=== PATIENT | female | born 1945 | race Caucasian/White ===

== ENCOUNTER 2018-10-04 10:10 | Inpatient (IN) | payer OTHER ==
[~2018-10-04] VITALS: Ht 157.5 cm; Wt 48.0 kg
[~2018-10-04 10:10] MED LIST: ALBU90OI INH; CEPH500 PO; HYDACE5 PO; HYDGUAL120 PO; PRED20 PO; SULTRIDS PO
[2018-10-04 10:56] LABS: BASOPHILS PERCENT AUTO 0 % (0-2); EOSINOPHILS PERCENT AUTO 0 % (0-6); Hematocrit 33.3 % (33.0-51.0); Hemoglobin 9.9 g/dL (11.5-16.0); IMMATURE GRAN ABSOLUTE AUTO 0.04 K/mm3 (0.00-0.10); IMMATURE GRAN PERCENT AUTO 0 % (0-1); LYMPHOCYTES PERCENT AUTO 2 % (21-46); MONOCYTES ABSOLUTE AUTO 0.86 K/mm3 (0.16-1.47); MONOCYTES PERCENT AUTO 9 % (4-13); Mean Corpuscular HGB 25.9 pg (26.0-34.0); Mean Corpuscular HGB Conc 29.7 g/dL (31.5-36.5); Mean Corpuscular Volume 87 fL (80-100); Mean Platelet Volume 10.5 fL (9.1-12.4); NEUTROPHILS PERCENT AUTO 88 % (41-73); Platelet Count 185 K/mm3 (150-400); RDW Coefficient Variation 15.2 % (11.7-14.2); RDW Standard Deviation 48.7 fL (35.1-46.3); Red Blood Cell Count 3.82 M/mm3 (3.80-5.20)
[2018-10-04 11:27] LABS: Alanine Aminotransfer (ALT/SGP 34 U/L (12-78); Albumin, Blood 3.1 g/dL (3.4-5.0); Albumin/Globulin Ratio 0.8 (0.8-1.8); Alk Phos 105 U/L (50-136); Anion Gap 7 mmol/L (6-16); Aspartate Aminotrans (AST/SGOT 43 U/L (12-37); Bilirubin, Total 0.6 mg/dL (0.1-1.0); Blood Urea Nitrogen 47 mg/dL (8-24); Bun/Creatinine Ratio 49.3 (12.0-20.0); CO2, Blood 30 mmol/L (21-32); CPK Creatine Kinase 824 U/L (26-193); Calcium, Blood 8.2 mg/dL (8.5-10.1); Chloride, Blood 103 mmol/L (98-108); Creatinine, Blood 0.95 mg/dL (0.40-1.00); Glomerular Filtration Rate >60 (60-); Glucose, Blood 152 mg/dL (70-99); Potassium, Blood 4.6 mmol/L (3.5-5.5); Sodium, Blood 140 mmol/L (136-145); Total Protein, Blood 7.1 g/dL (6.4-8.2)
[2018-10-04 11:43] LABS: Creatine Kinase MB 20.6 ng/mL (0.0-3.6); Creatine Kinase MB Index 2.5 (0.0-4.0)
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
--- NOTE | 2018-10-04 15:22 | NUR ---
Review of patient with ER nurse. Suggest pharmacy consult on lovenox due to risk of bleeding and review of additional fluids. ER nursing revieing additional lab value needs for plan of care.
[2018-10-05 05:17] LABS: Anion Gap 5 mmol/L (6-16); Blood Urea Nitrogen 44 mg/dL (8-24); Bun/Creatinine Ratio 46.8 (12.0-20.0); CO2, Blood 29 mmol/L (21-32); Calcium, Blood 7.9 mg/dL (8.5-10.1); Chloride, Blood 107 mmol/L (98-108); Creatinine, Blood 0.94 mg/dL (0.40-1.00); Glomerular Filtration Rate >60 (60-); Glucose, Blood 97 mg/dL (70-99); Potassium, Blood 4.8 mmol/L (3.5-5.5); Sodium, Blood 141 mmol/L (136-145)
--- NOTE | 2018-10-05 06:43 | NUR ---
SHIFT SUMMARY PT NEW ED ADMIT THIS EVENING. VERY DECONDITIONED. PER REPORT PT LIVES WITH SON HOWEVER SON LEFT BEFORE PT WAS BROUGHT TO HER ROOM. PT ALERT TO SELF AND PLACE. KNOWS THAT SHE IS HERE BECAUSE SHE FELL. PT IS FAIRLY CONFUSED THOUGH, AND A VERY POOR HISTORIAN. PT HAS CURVED BACK AND REPORTS HAVING HAD THIS SINCE SHE WAS A CHILD. ABRASIONS THROUGHOUT BODY. LARGE WHAT APPEARS TO BE LUJAN ON SHOULDERS, BACK, FOREARMS AND FACE. FRONT PORTION OF HAIR ALSO SINGED WOUNDS THROUGHOUT A GOOD PORTION OF HER BODY. BRUISING ALSO SCATTERED THROUGHOUT WITH A VERY LARGE BRUISE COVERING HER ENTIRE R HIP/THIGH. PICTURES IN THE CHART OF ALL. PT WAS VERY DIRTY, LOOKED IF SHE HADN'T SHOWERED IN A VERY LONG TIME. FULL BED BATH GIVEN TAKING OVER AN HOUR AN HAIR WASHED TWICE. PT REMAINS SOMEWHAT DIRTY BUT MUCH IMPROVED. LARGER OPEN WOUNDS COVERED WITH MEPILEX. PT WENT THE ENTIRE NIGHT WITHOUT VOIDING. BLADDER SCAN READ [address] DIAZ AND GOT ONE TIME ORDER FOR STRAIGHT CATH. WHILE GRABBING SUPPLIES PT SET OFF BED ALARM. PT ASSISTED TO BSC AND VOIDED 500 ML. PT HAS ONLY A COUPLE OF TEETH IN HER MOUTH, THIS NURSE HAS NOT SEEN HER EAT. SHE MAY REQUIRE [facility] SOFT DIET. HOWEVER PT DID SWALLOW WATER THROUGH A STRAW WITH NO SWALLOWING ISSUES. VITAL SIGNS STABLE. PT ON 2 L 02 NC. RESTING IN BED AT THIS TIME. WILL CONTINUE TO MONITOR AND REPORT TO DAY RN.
--- NOTE | 2018-10-05 17:30 | NUR ---
Mrs. Chan appears quite frail. She says she is irritated that she has become so weak. She has two adult sons who live with her. "My boys take good care of me." She is very proud of her sons. She admits to feeling worried that something will happen to her b/c her sons are unemployed, live with her, and the 3 of them depend on her social security check to survive. She has lived in the [place] area her entire life. She appears unkempt and disheveled. Numerous bruises and skin lacerations present. She has very few teeth and she admits eating has become a problem. She responded well to conversation and assurance of care. She appeared to enjoy telling me about her childhood and active life. She is non-mormon. We had an easy rapport. No family present at time of visit. I provided theraputic listening and gentle camp head counselor to good effect. I will remain available.
--- NOTE | 2018-10-05 18:09 | NUR ---
SHIFT SUMMARY PT HAS A BROKEN LEFT HIP. ADMITTED FOR FAILURE TO THRIVE. SHE IS A&O X2, ALERT ONLY TO SELF AND FAMILY CONTINUALLY, PERIODICALLY AGITATED/FORGETFUL/CONFUSED. PT IS A POOR HISTORIAN. SHE DID TRY TO EXIT THE BED ONCE THIS SHIFT. I HAVE NOTIFIED CHARGE THAT SHE IS A GOOD CANDIDATE FOR THE [facility] BRIGGS SHOULD A ROOM OPEN UP THERE. SHE IS COVERED IN BRUISES IN VARIOUS STAGES OF HEALING, LUJAN, AND HAS A HX OF FREQUENT FALLS. SHE IS UNABLE TO CARE FOR HERSELF AT HOME. SHE RECEIVES HELP FROM TWO ADULT SONS BUT THEY ADMIT THAT SHE IS BEYOND THEIR ABILITIES AND SHE OFTEN REFUSES TO COMPLY WITH THEM. PALLIATIVE CARE AND TECHNICAL SPEC ARE INVOLVED. DIETARY HAS CHANGED HER DIET TO MECHANICAL SOFT TODAY. THE SURGEON ROUNDED ON PT AND HOPES TO PERFORM A PARTIAL HIP REPLACEMENT TOMORROW IF THE PT IS HEALTHY ENOUGH. HOSPITALIST HOPED THAT WE COULD DECREASE THIS PT'S OXYGEN NEEDS (2 LPM VIA NC), HOWEVER THIS WAS UNSUCCESSFUL TODAY, THE PT DESATURATED DOWN TO MID 60'S WHEN O2 IS REMOVED.
--- NOTE | 2018-10-06 04:43 | NUR ---
SHIFT SUMMARY AT BEGINNING OF SHIFT PT WAS SITTING ON SIDE OF BED. RN STATED PT PREFERRED TO SIT THIS WAY. PT WAS FOUND SHORTLY IN RESTROOM AND UNSTEADY. PT HAD ALSO DISROBED. PT WAS CARRIED BACK TO HER BED. PT CONTINUED TO TRY AND GET OUT OF BED. PT IS UNSTEADY AT BEST. ORDERS FOR NIKIA VEST WAS GIVEN. PT REMAINDED IN BED SINCE. IT WAS FOUND THAT PT KEPT PULLING OFF HER NC AND HER SPO2 WAS IN 60'S. WRIST RESTRAINTS WAS ORDERED AND PLACED ON PT. PT IS BREATHING EASY SPO2 IS NOW IN 90'S. PT IS CONFUSED AND UNABLE TO FOLLOW DIRECTIONS. PT HAS SLEPT OFF AND ON. CURRENTLY PT IS SLEEPING AND BREATHING EASY. WILL CONTINUE TO MONITOR. CALL LIGHT IN REACH.
--- NOTE | 2018-10-06 19:50 | NUR ---
SHIFT SUMMARY PATIENT ALERT TO SELF. VERY CONFUSED AND UNABLE TO FOLLOW DIRECTIONS. PATIENT IS IN A POSI VEST AND WRIST RESTRAINTS FOR PATIENT SAFETY. THE PATIENT IS A FALL RISK AND CONTINUES TO TRY TO CRAWL OUT OF BED. PATIENT ALSO KEEPS PULLING OFF HER OXYGEN AND WILL QUICKLEY DESAT. RESTRAINT CHECK Q2 HOURS, REPOSITIONED Q 2 HOURS THIS SHIFT. O2 @ 2L NC, SATS >90%. PATIENT CURRENTLY RESTING QUIETLY. REPORT GIVEN TO CHAIRPERSON ANESTHESIOLOGY RN.
--- NOTE | 2018-10-07 03:54 | NUR ---
SHIFT SUMMARY PATIENT HAD NO ACUTE CHANGES OBSERVED DURING THE SHIFT. AXO SELF/FAMILY. TAKES MEDS CRUSHED IN APPLE SAUCE. PIV REMAINS INTACT. ON 2L O2 NC. HOSPITALIST DR DONOHUE RENEWED NIKIA VEST AND BILATERAL SOFT WRIST RESTRAINTS WITH PATIENT PULLING O2 OFF AND DESTATING QUICKLY. BED ALARM ACTIVATED. DENIES PAIN AND N/V. VSS/AFEBRILE. CALL LIGHT IN REACH. BED IN LOWEST POSITION. WILL CONTINUE TO MONITOR UNTIL DAY SHIFT NURSE ASSUMES CARE.
--- NOTE | 2018-10-07 04:28 | NUR ---
HOSPITALIST DR DONOHUE RENEWED NIKIA VEST AND BILATERAL SOFT RESTRAINTS. PATIENT PULLING O2 OFF AND QUICKLY DESTATING. CALL LIGHT IN REACH. BED IN LOWEST POSITION.
[2018-10-07 05:17] LABS: Anion Gap 7 mmol/L (6-16); Blood Urea Nitrogen 51 mg/dL (8-24); Bun/Creatinine Ratio 53.6 (12.0-20.0); CO2, Blood 30 mmol/L (21-32); Calcium, Blood 8.2 mg/dL (8.5-10.1); Chloride, Blood 104 mmol/L (98-108); Creatinine, Blood 0.95 mg/dL (0.40-1.00); Glomerular Filtration Rate >60 (60-); Glucose, Blood 80 mg/dL (70-99); Potassium, Blood 5.2 mmol/L (3.5-5.5); Sodium, Blood 141 mmol/L (136-145)
--- NOTE | 2018-10-07 11:20 | NUR ---
NOTIFIED DR. HINTON PT C/O PAIN AND ONLY HAS TYLENOL ORDERED FOR PAIN CONTROL. DR. HINTON SAID SHE WILL PUT IN ORDERS. NO NEW ORDERS AT THIS TIME.
--- NOTE | 2018-10-07 17:53 | NUR ---
NOTIFIED DR. HINTON PT VERY IRRITATED THIS PM. PT PULLING ON RESTRAINTS, IV LINE, O2 TUBING AND YELLING. DR. HINTON SAID TO ORDER 25MG PO SEROQUEL BID PRN AND TO SEE IF THERE IS ANY ROOM IN THE BACK BRIGGS. NO OTHER NEW ORDERS AT THIS TIME.
--- NOTE | 2018-10-07 18:42 | NUR ---
SHIFT SUMMARY- PT AXO TO SELF. PT PAINFUL UPON REPOSITIONING. MEDS GIVEN PER EMAR. PT 98% ON 2L O2 NC. PT PULLS O2 TUBING OFF T/O DAY. O2 PLACED BACK ON AND EXPLAINED TO PT THE IMPORTANCE OF WEARING THE O2. DRESSINGS APPLIED TO OPEN BLISTERS AND SCABS. PT IRRITABLE THIS PM. SEE PREVIOUS NOTE. WHEN I WENT TO GIVE SEROQUEL PT HAD GONE BACK TO SLEEP. PT SLEEPING PEACEFULLY IN HER BED. TURNS Q2H. PULMONARY CONSULT CALLED IN. NO OTHER SIGNIFICANT CHANGES THIS SHIFT.
[2018-10-08 05:05] LABS: BASOPHILS ABSOLUTE AUTO 0.01 K/mm3 (0.00-0.23); BASOPHILS PERCENT AUTO 0 % (0-2); EOSINOPHILS ABSOLUTE AUTO 0.02 K/mm3 (0.00-0.68); EOSINOPHILS PERCENT AUTO 0 % (0-6); Hematocrit 34.1 % (33.0-51.0); Hemoglobin 9.5 g/dL (11.5-16.0); IMMATURE GRAN ABSOLUTE AUTO 0.05 K/mm3 (0.00-0.10); IMMATURE GRAN PERCENT AUTO 1 % (0-1); LYMPHOCYTES ABSOLUTE AUTO 0.49 K/mm3 (0.84-5.20); LYMPHOCYTES PERCENT AUTO 5 % (21-46); MONOCYTES ABSOLUTE AUTO 1.33 K/mm3 (0.16-1.47); MONOCYTES PERCENT AUTO 14 % (4-13); Mean Corpuscular HGB 25.7 pg (26.0-34.0); Mean Corpuscular HGB Conc 27.9 g/dL (31.5-36.5); NEUTROPHILS ABSOLUTE AUTO 7.58 K/mm3 (1.96-9.15); NEUTROPHILS PERCENT AUTO 80 % (41-73); NRBC ABSOLUTE 0.05 K/mm3 (0.00-0.02); NRBC Auto 0.5 /100 WBC (0.0-0.2); Platelet Count 266 K/mm3 (150-400); RDW Coefficient Variation 14.8 % (11.7-14.2); RDW Standard Deviation 50.5 fL (35.1-46.3); Red Blood Cell Count 3.69 M/mm3 (3.80-5.20); White Blood Cell Count 9.48 K/mm3 (4.00-11.30)
[2018-10-08 05:06] LABS: Mean Corpuscular Volume 92 fL (80-100)
--- NOTE | 2018-10-08 05:32 | NUR ---
SHIFT SUMMARY PT SLEPT WELL DURING THE NIGHT, WOKE UP FOR A SHORT WHILE AND HOLLERED OUT. IVF'S INFUSING PER PUMP WITHOUT DIFFICULTY. NO ACUTE EVENTS OVER NIGHT. NIKIA VEST AND SOFT WRIST RESTRAINTS STILL ON AT PRESENT FOR PT SAFETY AND TO PROTECT CORDS AND LINES. WILL CONTINUE TO MONITOR.
[2018-10-08 05:38] LABS: Albumin, Blood 2.5 g/dL (3.4-5.0); Anion Gap 7 mmol/L (6-16); Blood Urea Nitrogen 54 mg/dL (8-24); Bun/Creatinine Ratio 53.5 (12.0-20.0); CO2, Blood 28 mmol/L (21-32); Calcium, Blood 7.7 mg/dL (8.5-10.1); Chloride, Blood 105 mmol/L (98-108); Creatinine, Blood 1.01 mg/dL (0.40-1.00); Glomerular Filtration Rate 57 (60-); Glucose, Blood 111 mg/dL (70-99); Phosphorus, Blood 3.8 mg/dL (2.5-4.9); Potassium, Blood 5.6 mmol/L (3.5-5.5); Sodium, Blood 140 mmol/L (136-145)
[2018-10-08 14:47] LABS: Albumin, Blood 2.2 g/dL (3.4-5.0); Anion Gap 5 mmol/L (6-16); Blood Urea Nitrogen 49 mg/dL (8-24); Bun/Creatinine Ratio 56.5 (12.0-20.0); CO2, Blood 29 mmol/L (21-32); Calcium, Blood 7.5 mg/dL (8.5-10.1); Chloride, Blood 108 mmol/L (98-108); Creatinine, Blood 0.87 mg/dL (0.40-1.00); Glomerular Filtration Rate >60 (60-); Glucose, Blood 97 mg/dL (70-99); Phosphorus, Blood 3.5 mg/dL (2.5-4.9); Potassium, Blood 5.6 mmol/L (3.5-5.5); Sodium, Blood 142 mmol/L (136-145)
[2018-10-08 14:56] LABS: Anion Gap 6 mmol/L (6-16); Blood Urea Nitrogen 49 mg/dL (8-24); Bun/Creatinine Ratio 55.2 (12.0-20.0); CO2, Blood 28 mmol/L (21-32); CPK Creatine Kinase 296 U/L (26-193); Calcium, Blood 7.4 mg/dL (8.5-10.1); Chloride, Blood 108 mmol/L (98-108); Creatinine, Blood 0.89 mg/dL (0.40-1.00); Glomerular Filtration Rate >60 (60-); Glucose, Blood 93 mg/dL (70-99); Potassium, Blood 5.6 mmol/L (3.5-5.5); Sodium, Blood 142 mmol/L (136-145)
--- NOTE | 2018-10-08 18:58 | NUR ---
pt somulent but less aggitated today muscle tone more relaxed. Review of consultations and labs. pt KPS score is 30% at this time due to Hip fracture, extensive wounds, poor renal and cardiac function, hyperkalemia, pulmonary disease. Role of palliative care is supportive care for symptom managment and family care at this time. Have extablished relationship with pt son Loy. Will review with physicians and care managers for updated plan of care.
[2018-10-09 05:21] LABS: Hematocrit 31.6 % (33.0-51.0); Hemoglobin 9.1 g/dL (11.5-16.0); Mean Corpuscular HGB 25.7 pg (26.0-34.0); Mean Corpuscular HGB Conc 28.8 g/dL (31.5-36.5); Mean Platelet Volume 10.5 fL (9.1-12.4); NRBC ABSOLUTE 0.03 K/mm3 (0.00-0.02); NRBC Auto 0.3 /100 WBC (0.0-0.2); Platelet Count 233 K/mm3 (150-400); RDW Coefficient Variation 14.7 % (11.7-14.2); RDW Standard Deviation 47.5 fL (35.1-46.3); Red Blood Cell Count 3.54 M/mm3 (3.80-5.20); White Blood Cell Count 8.76 K/mm3 (4.00-11.30)
[2018-10-09 05:24] LABS: Mean Corpuscular Volume 89 fL (80-100)
[2018-10-09 05:47] LABS: Albumin, Blood 2.3 g/dL (3.4-5.0); Anion Gap 5 mmol/L (6-16); Blood Urea Nitrogen 35 mg/dL (8-24); Bun/Creatinine Ratio 46.3 (12.0-20.0); CO2, Blood 30 mmol/L (21-32); CPK Creatine Kinase 457 U/L (26-193); Calcium, Blood 7.8 mg/dL (8.5-10.1); Chloride, Blood 106 mmol/L (98-108); Creatinine, Blood 0.76 mg/dL (0.40-1.00); Glomerular Filtration Rate >60 (60-); Glucose, Blood 109 mg/dL (70-99); Phosphorus, Blood 2.7 mg/dL (2.5-4.9); Potassium, Blood 4.7 mmol/L (3.5-5.5); Sodium, Blood 141 mmol/L (136-145)
--- NOTE | 2018-10-09 05:57 | NUR ---
SHIFT SUMMARY PT TO X-RAY EARLY ON IN SHIFT AND HAS BEEN AWAKE AND HOLLERING OUT THE REST OF THE NIGHT. PT NOT FOLLOWING DIRECTION TO TAKE HS MEDS, RISK OF ASPIRATION. PT HOLLERING OUT AND GRABBING AT RIGHT AND LEFT HIP. HOSPITALIST CALLED AND ORDER RECIEVED FOR IV PAIN MEDICATION, GIVEN X 3 THIS SHIFT. PT CONTINUED TO HOLLER OUT AFTER PAIN MED GIVEN FIRST TIME, ORDER RECEIVED FOR 1 TIME DOSE ATIVAN 0.5 MG FOR AGITATION. CALMED PT SOME, BUT STILL MOANING AND HOLLERS OUT AT TIMES. PT HAS NOT SLEPT MUCH THIS SHIFT. NO ACUTE EVENTS OTHERWISE NOTED, WILL CONTINUE TO MONITOR.
--- NOTE | 2018-10-09 17:38 | NUR ---
pt resting comfortably. revie wof plan of care for patient.
--- NOTE | 2018-10-09 19:09 | NUR ---
PT HAS REMAINED RESTLESS AND AGITATED ALL DAY WITH BREIF PERIODS OF REST. RESTRANTS TEMPORARILY RELEASED THROUGHOUT DAY WITH SUPERVISION. PAIN MEDS GIVEN NEEDED. PT HAS NOT TOLERATED MUCH FOOD OR FLUIDS TODAY, REFUSES OR SPITS UP WHEN OFFERED. CONTINUES TO SCRATCH AND PULL AT IV, DRESSINGS AND O2. DRESSINGS REPLACED ON MULTIPLE WOUNDS. PT REPOSITIONEED Q 2HRS.
[2018-10-10 04:47] LABS: BASOPHILS ABSOLUTE AUTO 0.01 K/mm3 (0.00-0.23); BASOPHILS PERCENT AUTO 0 % (0-2); EOSINOPHILS PERCENT AUTO 0 % (0-6); Hemoglobin 9.4 g/dL (11.5-16.0); IMMATURE GRAN ABSOLUTE AUTO 0.04 K/mm3 (0.00-0.10); IMMATURE GRAN PERCENT AUTO 1 % (0-1); LYMPHOCYTES ABSOLUTE AUTO 0.21 K/mm3 (0.84-5.20); LYMPHOCYTES PERCENT AUTO 2 % (21-46); MONOCYTES ABSOLUTE AUTO 0.75 K/mm3 (0.16-1.47); MONOCYTES PERCENT AUTO 9 % (4-13); Mean Corpuscular HGB 25.2 pg (26.0-34.0); Mean Corpuscular HGB Conc 28.5 g/dL (31.5-36.5); Mean Corpuscular Volume 89 fL (80-100); Mean Platelet Volume 10.7 fL (9.1-12.4); NEUTROPHILS ABSOLUTE AUTO 7.68 K/mm3 (1.96-9.15); NEUTROPHILS PERCENT AUTO 88 % (41-73); NRBC ABSOLUTE 0.02 K/mm3 (0.00-0.02); NRBC Auto 0.2 /100 WBC (0.0-0.2); Platelet Count 255 K/mm3 (150-400); RDW Coefficient Variation 15.3 % (11.7-14.2); RDW Standard Deviation 48.9 fL (35.1-46.3); Red Blood Cell Count 3.73 M/mm3 (3.80-5.20); White Blood Cell Count 8.69 K/mm3 (4.00-11.30)
[2018-10-10 05:13] LABS: Albumin, Blood 2.3 g/dL (3.4-5.0); Anion Gap 5 mmol/L (6-16); Blood Urea Nitrogen 26 mg/dL (8-24); CO2, Blood 31 mmol/L (21-32); CPK Creatine Kinase 329 U/L (26-193); Calcium, Blood 7.7 mg/dL (8.5-10.1); Chloride, Blood 105 mmol/L (98-108); Creatinine, Blood 0.79 mg/dL (0.40-1.00); Glomerular Filtration Rate >60 (60-); Glucose, Blood 171 mg/dL (70-99); Phosphorus, Blood 2.1 mg/dL (2.5-4.9); Potassium, Blood 4.7 mmol/L (3.5-5.5); Sodium, Blood 141 mmol/L (136-145)
--- NOTE | 2018-10-10 07:59 | NUR ---
PT PAIN PT GIVEN IV FENTANYL FOR PAIN THIS AM. PT RESTING COMFORTABLY IMMIDIATELY AFTER ADMINISTRATION. 30MIN LATE PT WOKE IN PAIN. YELLING & MOANING IN PAIN. PT TENSE & RESTLESS. DR. CHURCH CALLED FOR NEW RESTRAINT ORDERS. PAIN MANAGEMENT & NPO STATUS ADDRESSED. DR. CHURCH STATED SHE "WOULD TAKE A LOOK" WILL CONTINUE TO MONITOR PT PAIN.
--- NOTE | 2018-10-10 11:44 | NUR ---
PT SON ARRIVAL. DR. BERGERON CALLED & INFORMED THAT PT SON IS HERE AND WILL BE AVAILABLE FOR APPROX. 1.5 HOURS UNTIL HIS RIDE COMES TO PICK HIM UP.
--- NOTE | 2018-10-10 14:15 | NUR ---
met with sons regarding plan of care. they called their sister for and updatea nd all the children agree she has been declining and and sowing more signs of dementia. the feel with th hip injury and possible cancer diagnosis she would want comfort and hospice not treatment. Nursing and hospitlaist in to discuss and initiate plan of care.
--- NOTE | 2018-10-10 17:00 | NUR ---
NIKIA REMOVED- LATE ENTRY NIKIA VEST REMOVED FROM PT AT THIS TIME. PT DID NOT ATTEMPT TO GET OUT OF BED. NIKIA VEST NO LONGER NEEDED. WRIST RESTRAINTS KEPT INTACT. PT CONTINUES TO PULL AT LINES & WOUND DRESSINGS.
--- NOTE | 2018-10-10 17:01 | NUR ---
SHIFT SUMMARY PT TRANSITIONED TO COMFORT CARE THIS SHIFT. PT MEDICATED FOR PAIN & AGITATION NEEDED THROUGHOUT THE SHIFT. PT CURRENTLY SLEEPING IN BED. WARM BLANKETS FOR COMFORT. NO OTHER SIGNS OF DISTRESS AT THIS TIME. PT RESTING COMFORTABLE. WILL CONTINUE TO MONITOR UNTIL TURNOVER IS COMPLETE. PT PLANNED TO MOVE TO 348 IN THE [facility].
--- NOTE | 2018-10-10 18:43 | NUR ---
RESTRAINTS VEST RESTRAINT REMOVED FROM PT AT 1600. PT TOLERATED NO VEST RESTRAINT WELL. UPDATED ORDER TO REFLECT WRIST RESTRAINTS ONLY.
--- NOTE | 2018-10-10 21:50 | NUR ---
PATIENT TRANSFER TO [facility]. REPORT GIVEN TO JOSAFAT Stroud RN. BELONGINGS SENT WITH PATIENT.
--- NOTE | 2018-10-11 05:21 | NUR ---
SHIFT SUMMARY PT WAS AGITATED WHEN ARRIVED TO NEW ROOM. PT WAS TX PER EMAR FOR DISCOMFORT AND AGITATION. PT RESPONDED WELL TO TX. PT CONTINUES TO BEIN WRIST RESTRAINTS PT PULLS AT LINES, DIEROBES AND REMOVES BANDAGES. PT HAS BEEN CHANGED AND REPOSITIONED FREQUENTLY ORDERED. PT CURRENTLY SLEEPING. CALL LIGHT IN REACH.
--- NOTE | 2018-10-11 07:32 | NUR ---
COMFORT CARE INITIATED. PT MEDICATED FOR PAIN & AGITATION. NIKIA GIL UNTIED TO TRIAL HOW PT RESOPNODED WITHOUT IT. WRIST RESTRAINTS KEPT INTACT TO PROTECT DRESSINGS, IV, & O2 TUBING. WARM BLANKETS APPLIED FOR COMFORT.
--- NOTE | 2018-10-11 07:48 | NUR ---
REMOVED LEFT AND RIGHT WRIST RESTRAINTS. PT SLEEPING, RR EVEN AND UNLABORED. SKIN CONDITION WNL. BED LOW AND IN LOCKED POSITION. BED ALARM ACTIVATED. ERICK JAMES RN NOTIFIED OF RESTRAINT REMOVAL.
--- NOTE | 2018-10-11 12:13 | NUR ---
PT SCREAMS OUT WITH ANY MOVEMENT. ATTEMPT TO KEEP PT COMFORTABLE WITH SMALL POSITION CHANGES.
--- NOTE | 2018-10-11 13:00 | NUR ---
PT WAS MOANING PREVIOUS TO ROXINOL ADMINISTRATION. NOW APPEARS CALM, RESTING WITH EYES CLOSED RR EVEN AND UNLABORED.
--- NOTE | 2018-10-11 14:55 | NUR ---
PT RESTING WITH EYES CLOSED NO MOANING OR EVIDENCE OF PAIN AT THIS TIME. REPOSITIONED SLIGHTLY AND OFF OF BONY PROMINENCES.
--- NOTE | 2018-10-11 19:29 | NUR ---
SHIFT SUMMARY POSITIONED PATIENT OFF BONY PROMINENCES; EXTREME PAIN WITH ANY MOVEMENT OF HIPS. MEDICATED WITH ROXINOL. PT SLEPT FOR MOST OF SHIFT. MEDICATED FOR PAIN THROUGHOUT SHIFT. SON'S (WHO LIVE WITH HER) TO VISIT THIS PM. PHONE # ON PATIENT INFO BOARD. NO PO INTAKE TODAY. COMFORT CARE.
--- NOTE | 2018-10-12 05:21 | NUR ---
SHIFT SUMMARY PT COMFORT MAINTAINED AND TX PER EMAR. PT REPOSITIONED ORDERED WITH LESS MOVEMENT DUE TO BILAT HIP PAIN. PT IS CURRENTLY SLEEPING AND SHOWS NO SIGNS OF DISCOMFORT.
--- NOTE | 2018-10-12 15:08 | NUR ---
Jazmín appeared comfortable at time of visit. She did not respond to voice or touch. Breathing even but shallow. Silent prayer for her sons at bedside. I will remain available to this family.
--- NOTE | 2018-10-12 17:18 | NUR ---
SHIFT SUMMARY PT HAS BEEN SLEEPING A LOT OF THE SHIFT. PT DOES YELL OUT AT TIMES "I HAVE TO PEE." PT USED BED CADET X2 AND VOIDED SMALL AMOUNTS. MEDICATED FOR PAIN X3 TIMES THIS SHIFT. BANDAGES T/O BODY FOR WOUNDS FROM FALLING BEFORE ADMISSION. PT RESTING QUIETLY AT THIS TIME. WILL CONTINUE TO MONITOR FOR COMFORT AND REPORT TO ONCOMING RN.
--- NOTE | 2018-10-13 04:06 | NUR ---
SHIFT SUMMARY THE PT DOES APPEAR TO EXPERIENCE SEVERE DISCOMFORT WITH REPOSITION. THE PT ALSO YELLS OUT. THE PT HAS SEVERE BRUISING TO R SIDE. MEDICATED FOR PAIN X2 SO FAR THIS SHIFT AND PRIOR TO REPOSITION. HOWEVER, PT STILL APPEARED TO BE IN SEVERE PAIN WITH REPOSITION. ATTEMPTED GENTAL RESPOSITION BUT UNABLE TO TOLLERATED REPOSITION ONTO R SIDE, LIKELY DUE TO BRUISING. ORAL CARE COMPLETED AND FLUIDS OFERED. THE PT DOES APPEAR TO BE SLEEPING COMFORTABLY AT THIS TIME. WILL CONTINUE TO MONITOR.
--- NOTE | 2018-10-13 17:30 | NUR ---
Several visits with nils today. She is non-responsive, very shallow breaths, and apnec. She appears to be in no distress and very near end-of-life. Sat at bedside providing nearing coaching, prayer and comfort through touch. I will remain available to pt and family.
--- NOTE | 2018-10-13 17:45 | NUR ---
SHIFT SUMMARY PT ATE 15% OF BREAKFAST THIS SHIFT AND HAS SLEPT SINCE. NO INDICATIONS OF PAIN OR DISCOMFORT, REPOSITIONED Q2. NO OUTISDE VISITORS THIS SHIFT, PT APPEARS TO BE SLEEPING COMFORTABLY AT THIS TIME, WILL CONT TO MONITOR UNTIL REPORT GIVEN TO NOC RN.
--- NOTE | 2018-10-13 18:13 | NUR ---
COMFORT CARE VISIT. PT HAD JUST BEEN REPOSITIONED AND WAS SLEEPING SOUNDLY. SHE DID NOT WAKE TO VERBAL OR GENTLE TACTILE STIMULI. SHE APPEARS TO BE RESTING PEACEFULLY AT THIS TIME BUT NURSING REPORT PERIODS OF AGITATION AND DISTRESS DURING THE NIGHT. CM NOTES REVIEWED AND PLAN IS FOR CM TO MEET WITH SON IN AM TO DISCUSS DC PLANNING. WILL FOLLOW FOR S/S MANAGAEMENT.
--- NOTE | 2018-10-14 05:32 | NUR ---
SHIFT SUMMARY THE PT WAS NON-RESPONSIVE THE MAJORITY OF THE SHIFT. HOWEVER, THE PT RECENTLY WOKE DURING CHANGING AND INCONTINENCE CARE. THE PT DID APPEAR TO BE IN PAIN FOLLOWING CARE. MEDICATED PER EMAR. PT APPEARED MORE COMFORTABLY UPON REASSESSMENT. THE PT APPEARS COMFORTABLY AT THIS TIME. REPOSITIONED, AND ORAL CARE PROVIDED THROUGHOUT THE NIGHT. WILL CONTINUE TO MONITOR.
--- NOTE | 2018-10-14 15:25 | NUR ---
Jazmín appears about the same as yesterday. Very shallow breaths with long pauses. She is non-responsive to touch. She appears comfortale and well cared-for by nursing. Prayer provided at bedside.
--- NOTE | 2018-10-14 18:19 | NUR ---
SHIFT SUMMARY PT HAS HAD NO ACUTE CHANGES THIS SHIFT, MEDICATED PER MAR FOR PAIN AND ANXIETY, BED BATHED THIS SHIFT, BANDAGES REPLACED. SON AT BEDSIDE BRIEFLY THIS AM, PT HAS SLEPT T/O MOST OF SHIFT, APPEARS TO BE SLEEPING COMFORTABLY AT THIS TIME, WILL CONT TO MONITOR UNTIL REPORT GIVEN TO NOC RN.
--- NOTE | 2018-10-15 03:46 | NUR ---
SHIFT SUMMARY THE PT HAS APPEARED COMFORTABLY THIS ENTIRE SHIFT SO FAR. HAVE NOT NEEDED TO MEDICATE WITH PAIN MEDICATION OR ATIVAN SO FAR THIS SHIFT. PT MOANS OCCATIONALLY WITH REPOSITION AND THEN BACK TO SLEEP ORAL CARE PERFORMED, PTS TONGUE IS VERY DRY. ATTEMPTED MOUTH MOISTURIZER. THE PT APPEARS TO BE VERY COMFORTABLE AT THIS TIME AND IS SLEEPING. WILL CONTINUE TO MONITOR.
--- NOTE | 2018-10-15 10:59 | NUR ---
Entered room to check on Jazmín this morning. Her nurse was in her room and Jazmín was sleeping laying on her L side. She appears to be comfortable at this time. Nursing reports that pt did not wake up when a skin patch was placed on her hip this morning. No family is currently in her room. CM is working with pt's family for a safe discharge plan with hospice.
--- NOTE | 2018-10-15 16:15 | NUR ---
SHIFT SUMMARY- PT SLEEPING PEACEFULLY THIS AM WITH NO SIGNS OF PAIN/DISCOMFORT. PT DOES NOT RESPOND TO VERBAL STIMULI. PT MOANING/GRIMACING AND BREATHING HEAVY THIS AFTERNOON AFTER REPOSITIONING. MEDS GIVEN PER EMAR. PT RESTING PEACEFULLY AGAIN THIS PM. TURNS Q2H. NO OTHER SIGNIFICANT CHANGES THIS SHIFT.
--- NOTE | 2018-10-15 16:23 | NUR ---
Sat at bedside a few times today. Mrs. Chan was alone in room each time. She appears to be near end-of-life. she was non-responsive to voice or touch. she appears comfortable. I held her hand, matched breaths, and silently prayed for a peaceful transition. Reproduction Technician services will remain available.
--- NOTE | 2018-10-16 05:34 | NUR ---
SECRETIONS PT HAVING THICK, GREEN SECRETIONS. SET UP SUCTION IN RM FOR PRN SUCTIONING. PT TOLERATED WELL. ALSO ADMINISTERED 20MG ROXANOL FOR AIR HUNGER AND NONVERBAL CUES OF PAIN. PT REPOSITIONED FOR COMFORT. DIAPHORETIC TOT OUCH, PROVIDED SPNGE BATH IN BED DURING REPOSITIONING. WILL CONT TO MONITOR.
--- NOTE | 2018-10-16 06:24 | NUR ---
SHIFT SUMMARY: COMFORT CARE MAINTAINED T/O SHIFT. TREATED 1X FOR AIR HUNGER AND PAIN WITH 20 MG ROXANOL. REPOSITIONED Q2H FOR COMFORT. SUCTIONING EXCESS SECRETIONS. BREATHING IS LABORED AND IRREGULAR. PT IS UNRESPONSIVE, WHIMPERS AND FLUTTERS EYES DURING REPOSITIONING AND CHANGING. WILL CONT TO MONITOR AND PROVIDE COMFORT UNTIL PRESUMED BY ONCOMIG RN.
--- NOTE | 2018-10-16 12:10 | NUR ---
NOTIFIED DR. FELIX AND PRE SCHOOL MANAGER, ALEX PT PASSED AT 1200. PRE SCHOOL MANAGER ALEX CALLING PT'S SON.
--- NOTE | 2018-10-16 12:59 | NUR ---
PT'S SON IN THIS AFTERNOON TO SEE PT AFTER SHE HAS PASSED. PT'S SON SAID HE ONLY HAS [facility] TO PAY HOME AND THAT HE WILL CALL BACK LATER TODAY TO UPDATE THE HOSPITAL ON HIS PLANS.
== END 2018-10-16 15:35 | DRG 535 ==
LOC: ER 10:10 → ERHOLD 10:11 → MEDS 10:11 → ERHOLD 10:11 → MEDS 21:07 → ENPENDDIS 10-12 08:17 → MEDS 10-16 15:35
PROVIDERS: Emergency Medicine; Internal Medicine; Internal Medicine Critical Care Medicine; ADMIT Internal Medicine
DX: S72.002A Fracture of unspecified part of neck of left femur, initial encounter for closed fracture (principal); E43 Unspecified severe protein-calorie malnutrition; G93.41 Metabolic encephalopathy; M62.82 Rhabdomyolysis; C34.91 Malignant neoplasm of unspecified part of right bronchus or lung; R62.7 Adult failure to thrive; W19.XXXA Unspecified fall, initial encounter; Z51.5 Encounter for palliative care; F03.90 Unspecified dementia, unspecified severity, without behavioral disturbance, psychotic disturbance, mood disturbance, and anxiety; R91.8 Other nonspecific abnormal finding of lung field; E86.0 Dehydration; Z68.22 Body mass index [BMI] 22.0-22.9, adult; G32.89 Other specified degenerative disorders of nervous system in diseases classified elsewhere; F17.210 Nicotine dependence, cigarettes, uncomplicated; I27.20 Pulmonary hypertension, unspecified; E87.5 Hyperkalemia; T07.XXXA Unspecified multiple injuries, initial encounter; E83.39 Other disorders of phosphorus metabolism
CPT/HCPCS: 36415; 71046; 71260; 73502; 73552; 80048; 80053; 80069; 82550; 82553; 84145; 85025; 85027; 93005; 93010; 93306; 94640; 94760; 96360; 96361; 96374; 99285-25; G0378; J0696; J1650; J1815; J1940; J2060; J2405; J3010; J7030; J7042; J7050; J7060; Q9967